=== PATIENT | male | born 1955 | race Caucasian/White ===

== ENCOUNTER 2018-04-29 16:04 | Inpatient (IN) | payer MEDICAID ==
--- NOTE | 2018-04-29 16:47 | C.PDOC ---
History Of Present Illness 63 years old male with Hx of diabetes presents to ED for complaints of intermittent headache associated with numbness of right arm, slurred speech and dizziness that began 2 weeks ago. Patient states he went to PMD around 12:30Pm this afternoon and was sent to ER for evaluation. Denies chest pain, SOB, Hx of smoking or allergies to any medication. Patient states he currently feels like he has "Pressure on Brain." Time Seen by Provider: 04/29/18 16:33 Chief Complaint (Nursing): Headache History Per: Patient, [employer]ic History/Exam Limitations: language barrier (Turkish speaking) Onset/Duration Of Symptoms: Days (14) Current Symptoms Are (Timing): Still Present Preceeding Symptoms: None Associated Symptoms: denies: Photophobia, Blurred Vision Recent travel outside of the [place]: No Past Medical History Reviewed: Historical Data, Nursing Documentation, Vital Signs Vital Signs: Last Vital Signs Temp 98.7 F 04/29/18 16:13 Pulse 78 04/29/18 16:13 Resp 16 04/29/18 16:13 BP 144/96 H 04/29/18 16:13 Pulse Ox 98 04/29/18 18:33 - Medical History PMH: Diabetes Surgical History: No Surg Hx Family History: States: Unknown Family Hx - Social History Hx Tobacco Use: No Hx Alcohol Use: No Hx Substance Use: No Review Of Systems Constitutional: Negative for: Fever, Chills Cardiovascular: Negative for: Chest Pain Respiratory: Negative for: Shortness of Breath Gastrointestinal: Negative for: Nausea, Vomiting, Abdominal Pain, Diarrhea Neurological: Positive for: Numbness, Change in Speech, Headache, Dizziness. Negative for: Weakness Physical Exam - Physical Exam Appears: Non-toxic Skin: Warm, Dry Head: Atraumatic, Normacephalic Eye(s): bilateral: Normal Inspection, PERRL, EOMI Oral Mucosa: Moist Neck: Normal ROM, Supple Chest: Symmetrical, No Tenderness Cardiovascular: Rhythm Regular, No Murmur Respiratory: Normal Breath Sounds, No Decreased Breath Sounds, No Rales, No Rhonchi, No Wheezing Gastrointestinal/Abdominal: Soft, No Tenderness, No Distention, No Guarding, No Rebound Extremity: Normal ROM, No Tenderness, No Pedal Edema, Other (Decreased sensation on right upper extremities but equal sensation on lower extremities. No drift on upper or lower extremity. ) Extremity: Bilateral: Normal Color And Temperature, Normal ROM Neurological/Psych: Oriented x3, Normal Speech, Other (No focal deficits ) Gait: Steady ED Course And Treatment - Laboratory Results Result Diagrams: 04/29/18 17:08 04/29/18 17:08 O2 Sat by Pulse Oximetry: 98 (RA) Pulse Ox Interpretation: Normal - CT Scan/US Head CT Other Rad Studies (CT/US): Read By Radiologist, Radiology Report Reviewed CT/US Interpretation: PROCEDURE: CT HEAD WITHOUT CONTRAST. HISTORY: r/o stroke. COMPARISON: None available. TECHNIQUE: Axial computed tomography images were obtained through the head/brain without intravenous contrast. Radiation dose: Total exam DLP = 839.84 mGy-cm. This CT exam was performed using one or more of the following dose reduction techniques: Automated exposure control, adjustment of the mA and/or kV according to patient size, and/ or use of iterative reconstruction technique. FINDINGS: HEMORRHAGE: No intracranial hemorrhage. BRAIN: The waters-white matter differentiation is well preserved. There is no mass effect or definitive edema pattern appreciate including the cortex. There is minimal expansion of the ventriculosulcal and cisternal spaces however in a pattern most compatible with diffuse cerebral atrophy. No suspicious extra-axial fluid collection is identified in the midline brain anatomy appears grossly nonfocal as imaged. No atrophy or chronic microvascular ischemic changes. VENTRICLES: Unremarkable. No hydrocephalus. CALVARIUM: Unremarkable. PARANASAL SINUSES: Unremarkable as visualized. No significant inflammatory changes. MASTOID AIR CELLS: Unremarkable as visualized. No inflammatory changes. OTHER FINDINGS: None. IMPRESSION: Minimal diffuse cerebral atrophy however no CT acute findings are appreciable throughout the brain as discussed above. Follow-up CT or MRI are available as clinically warranted. Medical Decision Making Medical Decision Making: Ordered CXR, blood work, and Head CT. 5:38PM: Spoke with Pete Wright the neurologist, she said to order a consult and order CT Head, neck and MRI. 5:46: - Spoke with Magdalena Salcedo for admission. Disposition - Disposition Disposition: HOSPITALIZED Disposition Time: 17:47 Condition: GOOD - Clinical Impression Clinical Impression: Stroke - Scribe Statement The provider has reviewed the documentation as recorded by the Scribe Breezy Choudhury All medical record entries made by the Scribe were at my direction and personally dictated by me. I have reviewed the chart and agree that the record accurately reflects my personal performance of the history, physical exam, medical decision making, and the department course for this patient. I have also personally directed, reviewed, and agree with the discharge instructions and disposition. Decision To Admit - Pt Status Changed To: Hospital Disposition Of: Inpatient - Admit Certification Admit to Inpatient:: After my assessment, the patient will require hospitalization for at least two midnights. This is because of the severity of symptoms shown, intensity of services needed, and/or the medical risk in this patient being treated as an outpatient. - InPatient: Physician Admission Certification: I certify that this patient requires 2 or more midnights of care for the following reason:: 61 years old male with Hx of HTN and diabetes presents to ED for complaints of right arm numbness and slurred speech and has had dizziness for past 15 days. Symptoms progressively worsen and was referred here by PCP today. - . Bed Request Type: Regular Admitting Physician: Orlin Mattson Patient Diagnosis: Stroke
[2018-04-29 17:14] LABS: BASO # 0.1 K/uL (0.0-0.2); BASO % 0.9 % (0.0-2.0); EOS # 0.2 K/uL (0.0-0.7); EOS % 2.4 % (0.0-4.0); HEMOGLOBIN 13.8 g/dL (12.0-18.0); LYMPH # 3.2 K/uL (1.0-4.3); LYMPH % 48.7 % (20.0-40.0); MEAN CELL VOLUME 88.5 fL (80.0-94.0); MEAN CORPUSCULAR HEMOGLOBIN 31.6 pg (27.0-31.0); MEAN CORPUSCULAR HGB CONC 35.6 g/dL (33.0-37.0); MEAN PLATELET VOLUME 7.6 fL (7.2-11.7); MONO # 0.4 K/uL (0.0-0.8); NEUT # 2.8 K/uL (1.8-7.0); NRBC % 0.1 % (0.0-2.0); RBC 4.37 Mil/uL (4.40-5.90); RED CELL DISTRIBUTION WIDTH 13.4 % (11.5-14.5); WHITE BLOOD COUNT 6.6 K/uL (4.8-10.8)
[2018-04-29 17:20] LABS: INR 1.1; PROTHROMBIN TIME 11.8 SECONDS (9.7-12.2)
[2018-04-29 17:40] LABS: ALB/GLOB RATIO 1.3 (1.0-2.1); ALBUMIN 4.3 g/dL (3.5-5.0); ALT/SGPT 42 U/L (21-72); AST/SGOT 31 U/L (17-59); BLOOD UREA NITROGEN 18 mg/dL (9-20); CALCIUM 9.4 mg/dl (8.6-10.4); GFR AFRICAN-AMERICAN 57; GFR NON-AFRICAN AMERICAN 47
[2018-04-29 17:50] LABS: CK-MB 1.08 ng/mL (0.0-3.38)
--- NOTE | 2018-04-29 18:11 | CT ---
PROCEDURE: CT HEAD WITHOUT CONTRAST. HISTORY: r/o stroke COMPARISON: None available. TECHNIQUE: Axial computed tomography images were obtained through the head/brain without intravenous contrast. Radiation dose: Total exam DLP = 839.84 mGy-cm. This CT exam was performed using one or more of the following dose reduction techniques: Automated exposure control, adjustment of the mA and/or kV according to patient size, and/or use of iterative reconstruction technique. FINDINGS: HEMORRHAGE: No intracranial hemorrhage. BRAIN: The waters-white matter differentiation is well preserved. There is no mass effect or definitive edema pattern appreciate including the cortex. There is minimal expansion of the ventriculosulcal and cisternal spaces however in a pattern most compatible with diffuse cerebral atrophy. No suspicious extra-axial fluid collection is identified in the midline brain anatomy appears grossly nonfocal as imaged. No atrophy or chronic microvascular ischemic changes. VENTRICLES: Unremarkable. No hydrocephalus. CALVARIUM: Unremarkable. PARANASAL SINUSES: Unremarkable as visualized. No significant inflammatory changes. MASTOID AIR CELLS: Unremarkable as visualized. No inflammatory changes. OTHER FINDINGS: None. IMPRESSION: Minimal diffuse cerebral atrophy however no CT acute findings are appreciable throughout the brain as discussed above. Follow-up CT or MRI are available as clinically warranted.
[2018-04-29] MEDS ORDERED: Iodixanol 320 mg/ml 150 ml Bottle IV ONE (18:12)
--- NOTE | 2018-04-29 18:35 | CP.PCM.HP ---
<Gale Reynoso - Last Filed: 04/29/18 20:07> History of Present Illness - History of Present Illness History of Present Illness: Healthcare proxy: - Karla Brooks #[phone] CC: "Headache and change in speech" HPI: 63 year old male with past medical history of HTN, DM type II, Vertigo; Lymphoma presents to the ER for headache, slurred speech and right arm numbness. Patient states the symptoms started around noon today when he was at his PMD's office. He states the right hand numbness started first and went up his arm and then he had difficulty speaking. He states these symptoms lasted for about 1-2 hours. His PMD wanted to call the ambulance but the patient came to the ER instead with his . Patient states this happened about a month ago with the same symptoms while he was in [place]. He states at that time he was seen by a physician in [place] who stated it was related to cervical disk problem. Patient states the last few days he has been having painful headaches which are located behind his eyes. Patient denies change in vision, blurry vision, weakness, chest pain, shortness of breath, nausea, vomiting, diarrhea or constipation. PMD: Dr. Wing Mahoney Oncologist: Dr. 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 absent: Chills, Fever - EENT Eyes: absent: Blurred Vision, Change in Vision - Cardiovascular Cardiovascular: absent: Chest Pain, Dyspnea, Palpitations, Pedal Edema - Respiratory Respiratory: absent: Dyspnea - Gastrointestinal Gastrointestinal: absent: Abdominal Pain, Constipation, Nausea, Vomiting - Genitourinary Genitourinary: absent: Dysuria, Hematuria - Neurological Neurological: Abnormal Speech (slurred speech ), Dizziness, Numbness (right arm numbness ), Headaches Past Patient History - Past Social History Smoking Status: Never Smoked - PSYCHIATRIC Hx Substance Use: No Meds Allergies/Adverse Reactions: Allergies Allergy/AdvReac Type Severity Reaction Status Date / Time Latex, Natural Rubber Allergy RASH Verified 04/29/18 20:29 Physical Exam - Constitutional Appears: Non-toxic, No Acute Distress - Head Exam Head Exam: ATRAUMATIC, NORMAL INSPECTION, NORMOCEPHALIC - Eye Exam Eye Exam: EOMI, Normal appearance, PERRL. absent: Nystagmus, Scleral icterus Pupil Exam: NORMAL ACCOMODATION - ENT Exam ENT Exam: Mucous Membranes Dry - Respiratory Exam Respiratory Exam: Clear to Auscultation Bilateral, NORMAL BREATHING PATTERN. absent: Rales, Rhonchi, Wheezes, Stridor - Cardiovascular Exam Cardiovascular Exam: REGULAR RHYTHM, +S1, +S2. absent: JVD - GI/Abdominal Exam GI & Abdominal Exam: Normal Bowel Sounds, Soft. absent: Tenderness - Extremities Exam Extremities exam: Positive for: normal capillary refill, normal inspection, pedal pulses present. Negative for: joint swelling, pedal edema, tenderness - Neurological Exam Neurological exam: Alert, CN II-XII Intact, Oriented x3 - Expanded Neurological Exam Expanded Patient oriented to: person, place, time Speech: Fluid Speech Cranial nerves: EOM's Intact: Normal Sensory exam: Lower Extremity Light Touch: Normal, Upper Extremity Light Touch: Normal Neuro motor strength exam: Left Upper Extremity: 5, Right Upper Extremity: 5, Left Lower Extremity: 5, Right Lower Extremity: 5 Coma Scale Eye Opening: SPONTANEOUS Coma Scale Motor Response: OBEYS COMMANDS - Psychiatric Exam Psychiatric exam: Normal Affect, Normal Mood - Skin Skin Exam: Normal Color Results - Vital Signs Recent Vital Signs: Last Vital Signs Temp 98.7 F 04/29/18 16:13 Pulse 78 04/29/18 16:13 Resp 16 04/29/18 16:13 BP 144/96 H 04/29/18 16:13 Pulse Ox 98 04/29/18 18:33 - Labs Result Diagrams: 04/29/18 17:08 04/29/18 17:08 Labs: Laboratory Results - last 24 hr 04/29/18 04/29/18 04/29/18 17:08 17:08 17:08 WBC 6.6 RBC 4.37 L Hgb 13.8 Hct 38.6 MCV 88.5 MCH 31.6 H MCHC 35.6 RDW 13.4 Plt Count 264 MPV 7.6 Neut % (Auto) 42.0 L Lymph % (Auto) 48.7 H [place] % (Auto) 6.0 Eos % (Auto) 2.4 Baso % (Auto) 0.9 Neut # (Auto) 2.8 Lymph # (Auto) 3.2 [place] # (Auto) 0.4 Eos # (Auto) 0.2 Baso # (Auto) 0.1 PT 11.8 INR 1.1 APTT 37 H Sodium 141 Potassium 4.6 Chloride 102 Carbon Dioxide 27 Anion Gap 18 BUN 18 Creatinine 1.5 Est GFR ( Amer) 57 Est GFR (Non-Af Amer) 47 Random Glucose 102 Calcium 9.4 Total Bilirubin 0.5 AST 31 ALT 42 Alkaline Phosphatase 49 Total Creatine Kinase 137 CK-MB (Mass) 1.08 Troponin I < 0.0120 Total Protein 7.5 Albumin 4.3 Globulin 3.2 Albumin/Globulin Ratio 1.3 Assessment & Plan - Assessment and Plan (Free Text) Assessment: Headache/Numbness/Slurred Speech - secondary to possible TIA - Numbness and slurred speech resolved on admission - NIH 0 - Admitted to Tele - Neuro Consult: Dr. Lara --> help appreciated - Dr. Lara was made aware of patient's admission - Neuro Checks q2h - Nursing bedside swallow eval - Head CT: Minimal diffuse cerebral atrophy however no CT acute findings are appreciable throughout the brain as discussed above. Follow-up CT or MRI are available as clinically warranted. 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 Hardik Lei - patient states his last visit was 2 years ago History of Vertigo - Home medications - Meclizine - hold Prophylaxis - SCDs - DVT score of 4 - Heparin q8 - GI prophylaxis not indicated - PT/OT Case discussed with Dr. Twila Palma PGY-1 <Orlin Mattson - Last Filed: 04/30/18 16:18> Results - Vital Signs Recent Vital Signs: Last Vital Signs Temp 97.6 F 04/30/18 11:44 Pulse 54 L 04/30/18 11:44 Resp 18 04/30/18 11:44 BP 112/71 04/30/18 11:44 Pulse Ox 96 04/30/18 11:44 - Labs Result Diagrams: 04/30/18 09:56 04/30/18 06:48 Labs: Laboratory Results - last 24 hr 04/29/18 04/29/18 04/29/18 17:08 17:08 17:08 WBC 6.6 RBC 4.37 L Hgb 13.8 Hct 38.6 MCV 88.5 MCH 31.6 H MCHC 35.6 RDW 13.4 Plt Count 264 MPV 7.6 Neut % (Auto) 42.0 L Lymph % (Auto) 48.7 H [place] % (Auto) 6.0 Eos % (Auto) 2.4 Baso % (Auto) 0.9 Neut # (Auto) 2.8 Lymph # (Auto) 3.2 [place] # (Auto) 0.4 Eos # (Auto) 0.2 Baso # (Auto) 0.1 PT 11.8 INR 1.1 APTT 37 H Sodium 141 Potassium 4.6 Chloride 102 Carbon Dioxide 27 Anion Gap 18 BUN 18 Creatinine 1.5 Est GFR ( Amer) 57 Est GFR (Non-Af Amer) 47 POC Glucose (mg/dL) Random Glucose 102 Hemoglobin A1c Calcium 9.4 Total Bilirubin 0.5 AST 31 ALT 42 Alkaline Phosphatase 49 Total Creatine Kinase 137 CK-MB (Mass) 1.08 Troponin I < 0.0120 Total Protein 7.5 Albumin 4.3 Globulin 3.2 Albumin/Globulin Ratio 1.3 Triglycerides Cholesterol LDL Cholesterol Direct HDL Cholesterol Vitamin B12 Folate Free T4 TSH 3rd Generation 04/29/18 04/29/18 04/30/18 18:54 21:17 06:00 WBC RBC Hgb Hct MCV MCH MCHC RDW Plt Count MPV Neut % (Auto) Lymph % (Auto) [place] % (Auto) Eos % (Auto) Baso % (Auto) Neut # (Auto) Lymph # (Auto) [place] # (Auto) Eos # (Auto) Baso # (Auto) PT INR APTT Sodium Potassium Chloride Carbon Dioxide Anion Gap BUN Creatinine Est GFR ( Amer) Est GFR (Non-Af Amer) POC Glucose (mg/dL) 94 121 H 103 Random Glucose Hemoglobin A1c Calcium Total Bilirubin AST ALT Alkaline Phosphatase Total Creatine Kinase CK-MB (Mass) Troponin I Total Protein Albumin Globulin Albumin/Globulin Ratio Triglycerides Cholesterol LDL Cholesterol Direct HDL Cholesterol Vitamin B12 Folate Free T4 TSH 3rd Generation 04/30/18 04/30/18 04/30/18 06:48 06:48 09:56 WBC 6.5 RBC 4.49 Hgb 13.8 Hct 40.2 MCV 89.6 MCH 30.8 MCHC 34.3 RDW 13.3 Plt Count 256 MPV 8.5 Neut % (Auto) 33.3 L Lymph % (Auto) 53.9 H [place] % (Auto) 8.5 Eos % (Auto) 3.4 Baso % (Auto) 0.9 Neut # (Auto) 2.2 Lymph # (Auto) 3.5 [place] # (Auto) 0.6 Eos # (Auto) 0.2 Baso # (Auto) 0.1 PT INR APTT Sodium 140 Potassium 4.8 Chloride 104 Carbon Dioxide 25 Anion Gap 15 BUN 18 Creatinine 1.2 Est GFR ( Amer) > 60 Est GFR (Non-Af Amer) > 60 POC Glucose (mg/dL) Random Glucose 115 H Hemoglobin A1c 6.5 Calcium 9.4 Total Bilirubin 0.6 AST 24 ALT 37 Alkaline Phosphatase 46 Total Creatine Kinase CK-MB (Mass) Troponin I Total Protein 7.0 Albumin 4.0 Globulin 3.0 Albumin/Globulin Ratio 1.4 Triglycerides 133 Cholesterol 199 LDL Cholesterol Direct 137 H HDL Cholesterol 38 Vitamin B12 371 Folate 8.7 Free T4 TSH 3rd Generation 4.87 H 04/30/18 04/30/18 11:07 11:32 WBC RBC Hgb Hct MCV MCH MCHC RDW Plt Count MPV Neut % (Auto) Lymph % (Auto) [place] % (Auto) Eos % (Auto) Baso % (Auto) Neut # (Auto) Lymph # (Auto) [place] # (Auto) Eos # (Auto) Baso # (Auto) PT INR APTT Sodium Potassium Chloride Carbon Dioxide Anion Gap BUN Creatinine Est GFR ( Amer) Est GFR (Non-Af Amer) POC Glucose (mg/dL) 118 H Random Glucose Hemoglobin A1c Calcium Total Bilirubin AST ALT Alkaline Phosphatase Total Creatine Kinase CK-MB (Mass) Troponin I Total Protein Albumin Globulin Albumin/Globulin Ratio Triglycerides Cholesterol LDL Cholesterol Direct HDL Cholesterol Vitamin B12 Folate Free T4 0.87 TSH 3rd Generation Attending/Attestation - Attestation I have personally seen and examined this patient.: Yes I have fully participated in the care of the patient.: Yes I have reviewed all pertinent clinical information: Yes Notes (Text): Seen and examined by me.d/w Resident
--- NOTE | 2018-04-29 19:32 | RAD ---
PROCEDURE: CHEST RADIOGRAPH, 1 VIEW HISTORY: SOB COMPARISON: None available. FINDINGS: LUNGS: No acute alveolar infiltrate identified bilaterally. Reticular markings are questioned increased bilaterally. PLEURA: No pneumothorax or pleural fluid seen. CARDIOVASCULAR: Cardiac size appears normal. There is borderline pulmonary vascular congestion. Clinically correlate further. OSSEOUS STRUCTURES: No significant abnormalities. VISUALIZED UPPER ABDOMEN: Normal. OTHER FINDINGS: None. IMPRESSION: Questionable pulmonary vascular congestion. Clinically correlate further. No acute infiltrate bilaterally.
[2018-04-29] MEDS ORDERED: Glucagon Recombinant 1 mg Inj IM PRN (20:16)
[2018-04-29] MEDS ORDERED: Dextrose 50% SYRINGE Inj (50 ml) IV PRN (20:16)
[2018-04-29] MEDS: (Novolin R) Insulin Human Regular 100 units/ml vial SC SCH (21:30)
--- NOTE | 2018-04-30 07:14 | CP.PCM.PN ---
Subjective - Date & Time of Evaluation Date of Evaluation: 04/30/18 Time of Evaluation: 07:00 - Subjective Subjective: Medicine Progress Note: Patient was seen and examined at bedside in the AM. Patient states he is feeling a lot better. Patient denies headache, blurry vision, change in vision, numbness, tingling, chest pain, shortness of breath, palpitation, nausea, vomiting, diarrhea or constipation. Objective - Vital Signs/Intake and Output Vital Signs (last 24 hours): Temp Pulse Resp BP Pulse Ox 98.2 F 64 20 118/78 96 04/30/18 04:15 04/30/18 04:15 04/30/18 04:15 04/30/18 04:15 04/30/18 04:15 Intake and Output: 04/30/18 04/30/18 06:59 18:59 Intake Total 410 Balance 410 - Medications Medications: Current Medications Aspirin (Aspirin Chewable) 81 mg PO DAILY [facility] Dextrose (Glutose 15) 0 gm PO ONCE PRN; Protocol PRN Reason: Hypoglycemia Protocol Dextrose (Dextrose 50% Inj) 0 ml IV STAT PRN; Protocol PRN Reason: Hypoglycemia Protocol Glucagon (Glucagen Diagnostic Kit) 0 mg IM STAT PRN; Protocol PRN Reason: Hypoglycemia Protocol Heparin Sodium (Porcine) (Heparin) 5,000 units SC Q8 [facility] Last Admin: 04/30/18 05:13 Dose: 5,000 units Dextrose (Dextrose 5% In Water 1000 Ml) 1,000 mls @ 0 mls/hr IV .Q0M PRN; Protocol; Per Protocol PRN Reason: Hypoglycemia Protocol Insulin Human Regular (Novolin R) 0 unit SC ACHS [facility] PRN Reason: Protocol Last Admin: 04/29/18 21:30 Dose: Not Given Rosuvastatin Calcium (Crestor) 2.5 mg PO HS BRUCE - Labs Labs: 04/29/18 17:08 04/29/18 17:08 PT 11.8 SECONDS (9.7-12.2) 04/29/18 17:08 INR 1.1 04/29/18 17:08 APTT 37 SECONDS (21-34) H 04/29/18 17:08 - Constitutional Appears: No Acute Distress - Head Exam Head Exam: ATRAUMATIC, NORMAL INSPECTION - Eye Exam Eye Exam: EOMI, Normal appearance, PERRL Pupil Exam: NORMAL ACCOMODATION - ENT Exam ENT Exam: Mucous Membranes Moist - Respiratory Exam Respiratory Exam: Clear to Ausculation Bilateral, NORMAL BREATHING PATTERN - Cardiovascular Exam Cardiovascular Exam: REGULAR RHYTHM, +S1, +S2 - GI/Abdominal Exam GI & Abdominal Exam: Soft, Normal Bowel Sounds. absent: Tenderness - Extremities Exam Extremities Exam: Normal Capillary Refill, Normal Inspection. absent: Pedal Edema, Tenderness - Neurological Exam Neurological Exam: Alert, Awake, CN II-XII Intact, Oriented x3 Neuro motor strength exam: Left Upper Extremity: 5, Right Upper Extremity: 5, Left Lower Extremity: 5, Right Lower Extremity: 5 - Psychiatric Exam Psychiatric exam: Normal Affect, Normal Mood - Skin Skin Exam: Normal Color Assessment and Plan - Assessment and Plan (Free Text) Assessment: Transient Ischemic Attack Headache/Numbness/Slurred Speech - resolved - secondary to possible TIA - Numbness and slurred speech resolved on admission - NIH 0 - Admitted to Tele - Neuro Consult: Dr. Lara --> help appreciated - Dr. Lara was made aware of patient's admission and imaging findings 04/30/18 - Neuro Checks q4h - Nursing bedside swallow eval - Images: * Head CT: Minimal diffuse cerebral atrophy however no CT acute findings are appreciable throughout the brain as discussed above. Follow-up CT or MRI are available as clinically warranted. * Brain MRI with and w/o contrast: No acute intracranial hemorrhage or infarction. Mild chronic white matter is ischemic changes as described. No enhancing lesions seen. Mild moderate generalized volume loss. * Head/Neck CTA: Minor partially calcified atherosclerotic plaque left carotid bifurcation and right cavernous carotid segments. No evidence of occlusion of the extracranial or intracranial anterior/ posterior circulations as described. 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 Hardik Lei - patient states his last visit was 2 years ago History of Vertigo - Home medications - Meclizine - hold Prophylaxis - SCDs - DVT score of 4 - Heparin q8 - GI prophylaxis not indicated - PT/OT Case discussed with Dr. Twila Palma PGY-1
[2018-04-30 07:24] LABS: ALB/GLOB RATIO 1.4 (1.0-2.1); ALT/SGPT 37 U/L (21-72); AST/SGOT 24 U/L (17-59); BLOOD UREA NITROGEN 18 mg/dL (9-20); CALCIUM 9.4 mg/dl (8.6-10.4); GFR AFRICAN-AMERICAN > 60; GFR NON-AFRICAN AMERICAN > 60; HDL CHOLESTEROL 38 mg/dL (30-70)
[2018-04-30 07:32] LABS: LDL CHOLESTEROL 137 mg/dL (0-129)
[2018-04-30] MEDS: (Novolin R) Insulin Human Regular 100 units/ml vial SC SCH ×4 (07:38→21:39)
[2018-04-30 09:44] LABS: FOLATE 8.7 ng/mL
[2018-04-30 10:08] LABS: BASO # 0.1 K/uL (0.0-0.2); BASO % 0.9 % (0.0-2.0); EOS # 0.2 K/uL (0.0-0.7); EOS % 3.4 % (0.0-4.0); HEMOGLOBIN 13.8 g/dL (12.0-18.0); LYMPH # 3.5 K/uL (1.0-4.3); LYMPH % 53.9 % (20.0-40.0); MEAN CELL VOLUME 89.6 fL (80.0-94.0); MEAN CORPUSCULAR HEMOGLOBIN 30.8 pg (27.0-31.0); MEAN CORPUSCULAR HGB CONC 34.3 g/dL (33.0-37.0); MEAN PLATELET VOLUME 8.5 fL (7.2-11.7); MONO # 0.6 K/uL (0.0-0.8); MONO % 8.5 % (0.0-10.0); NEUT # 2.2 K/uL (1.8-7.0); NEUT % 33.3 % (50.0-75.0); NRBC % 0.3 % (0.0-2.0); RBC 4.49 Mil/uL (4.40-5.90); RED CELL DISTRIBUTION WIDTH 13.3 % (11.5-14.5); WHITE BLOOD COUNT 6.5 K/uL (4.8-10.8)
--- NOTE | 2018-04-30 10:54 | MRI ---
PROCEDURE: MRI BRAIN WITH AND WITHOUT CONTRAST HISTORY: Numbness of right arm,slurred speech,h/o lymphoma COMPARISON: Comparison made with concurrent CT and CTA brain dated 04/29/2018 TECHNIQUE: Multiplanar, multisequence MR images of the brain were obtained with and without intravenous contrast enhancement. FINDINGS: HEMORRHAGE: No acute parenchymal, subarachnoid or extra-axial hemorrhage. No evidence of hemosiderin deposition identified on gradient echo weighted sequences DWI: No evidence of an acute or early subacute infarction seen on diffusion imaging. . BRAIN PARENCHYMA: Mild diffuse/ confluent chronic periventricular white matter ischemic changes seen in seen though most conspicuous in the periatrial/very occipital horn white matter. In addition, there are multiple more discrete chronic appearing small infarct changes scattered about the deep and subcortical regions of both cerebral hemispheres more more numerous and pronounced in the parietal lobes. None of these changes exhibit restricted diffusion. Scattered chronic appearing . Findings consistent with partially empty sella. Mild moderate generalized volume loss. ENHANCEMENT: No evidence of abnormal parenchymal or extra-axial enhancing masses or collections. No evidence of unusual meningeal enhancement. VENTRICLES: Unremarkable. No hydrocephalus. CRANIUM: Unremarkable. ORBITS: Grossly unremarkable. PARANASAL SINUSES/MASTOIDS: Clear VASCULAR SYSTEM: Visualized major vascular flow voids at skull base patent. OTHER FINDINGS: None . IMPRESSION: No acute intracranial hemorrhage or infarction. Mild chronic white matter is ischemic changes as described. No enhancing lesions seen. Mild moderate generalized volume loss.
--- NOTE | 2018-04-30 11:08 | CT ---
PROCEDURE: CT Angiography of the neck and brain dated 04/29/2018 HISTORY: Slurred speech, headache and dizziness. COMPARISON: Correlation made with CT scan of the brain and MRI of the brain both dated 04/29/2018. TECHNIQUE: Contiguous helical/transaxial images of the neck were obtained from the level of the skull-base to the superior mediastinum in the arteriographic phase of enhancement. Coronal and sagittal reformats or also generated. IV contrast dose: 100 cc Visipaque 320 Radiation Dose - DLP: 651.85 mGy-cm This CT exam was performed using one or more of the following dose reduction techniques: Automated exposure control, adjustment of the mA and/or kV according to patient size, and/or use of iterative reconstruction technique. . FINDINGS: The visualized aortic arch is widely patent with nor significant atherosclerotic plaque. No significant plaque or stenosis at the origins of the great vessels. The visualized common carotid arteries, carotid bifurcations and internal carotid arteries are also widely patent very tiny. Ten very tiny calcified plaque seen along the posteromedial aspect left carotid bifurcation without significant stenosis. The at internal carotid arteries including the petrous cavernous and supraclinoid segments widely patent. Mild calcified plaque seen along the right cavernous carotid segment. The vertebral arteries are patent throughout right-sided which is only minimally more dominant than the left. Basilar artery is patent. The visualized major branches of the [place] are patent. . The distal branches of the anterior middle and posterior cerebral arteries are patent and symmetric. No evidence of large aneurysm nor vascular malformation. IMPRESSION: Minor partially calcified atherosclerotic plaque left carotid bifurcation and right cavernous carotid segments. No evidence of occlusion of the extracranial or intracranial anterior/ posterior circulations as described. .
[2018-04-30] MEDS: Sodium Chloride 0.9% 1,000 ML IV SCH ×2 (13:11→22:20)
--- NOTE | 2018-04-30 15:54 | CP.PCM.CON ---
History of Present Illness - History of Present Illness History of Present Illness: 63 yr old male, right handed who is originally from [place], presented with second spell of dysarthria and right arm weakness who came in to ER yesterday and symptoms were resolved. had MRI Brain that is normal, and is now pending ECHO. His CTA of the head and neck shows mild atherosclerotic plaque in the left carotid bifurcation, and case was discussed with Dr. Carey. We will just start antiplatelets, and monitor on an outpatient basis. He has not had a resurgence of symptoms, and is well this morning. past medical history of HTN, DM type II, Vertigo; Lymphoma presents to the ER for headache, slurred speech and right arm numbness. Patient states the symptoms started around noon today when he was at his PMD's office. He states the right hand numbness started first and went up his arm and then he had difficulty speaking. He states these symptoms lasted for about 1-2 hours. His PMD wanted to call the ambulance but the patient came to the ER instead with his . Patient states this happened about a month ago with the same symptoms while he was in [place]. He states at that time he was seen by a physician in [place] who stated it was related to cervical disk problem. Patient states the last few days he has been having painful headaches which are located behind his eyes. Patient denies change in vision, blurry vision, weakness, chest pain, shortness of breath, nausea, vomiting, diarrhea or constipation. PMD: Dr. Wing Mahoney Oncologist: Dr. 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 Cn 2-12 normal. EOMI. Motor: strength: 5/5 ul and ll bl. Sensory: intact ft, pin, position sense. Gait: normal. +2 dtr ul and ll bl. Toes downgoing. NO clonus. Past Patient History - Past Medical History & Family History Past Medical History?: Yes - Past Social History Smoking Status: Never Smoked - CARDIAC Hx Cardiac Disorders: No - PULMONARY Hx Respiratory Disorders: No - NEUROLOGICAL Hx Neurological Disorder: No - HEENT Hx HEENT Problems: No - RENAL Hx Chronic Kidney Disease: No - ENDOCRINE/METABOLIC Hx Diabetes Mellitus Type 2: Yes - HEMATOLOGICAL/ONCOLOGICAL Hx Blood Disorders: No - INTEGUMENTARY Hx Dermatological Problems: No - MUSCULOSKELETAL/RHEUMATOLOGICAL Hx Musculoskeletal Disorders: No Hx Falls: No - GASTROINTESTINAL Hx Gastrointestinal Disorders: No - GENITOURINARY/GYNECOLOGICAL Hx Genitourinary Disorders: No - PSYCHIATRIC Hx Psychophysiologic Disorder: No Hx Substance Use: No - SURGICAL HISTORY Hx Surgeries: No Meds Allergies/Adverse Reactions: Allergies Allergy/AdvReac Type Severity Reaction Status Date / Time Latex, Natural Rubber Allergy RASH Verified 04/29/18 20:29 - Medications Medications: Current Medications Aspirin (Aspirin Chewable) 81 mg PO DAILY [facility] Last Admin: 04/30/18 09:09 Dose: 81 mg Clopidogrel Bisulfate (Plavix) 75 mg PO DAILY [facility] Last Admin: 04/30/18 13:11 Dose: 75 mg Dextrose (Glutose 15) 0 gm PO ONCE PRN; Protocol PRN Reason: Hypoglycemia Protocol Dextrose (Dextrose 50% Inj) 0 ml IV STAT PRN; Protocol PRN Reason: Hypoglycemia Protocol Glucagon (Glucagen Diagnostic Kit) 0 mg IM STAT PRN; Protocol PRN Reason: Hypoglycemia Protocol Heparin Sodium (Porcine) (Heparin) 5,000 units SC Q8 [facility] Last Admin: 04/30/18 13:31 Dose: 5,000 units Dextrose (Dextrose 5% In Water 1000 Ml) 1,000 mls @ 0 mls/hr IV .Q0M PRN; Protocol; Per Protocol PRN Reason: Hypoglycemia Protocol Sodium Chloride (Sodium Chloride 0.9%) 1,000 mls @ 100 mls/hr IV .Q10H [facility] Last Admin: 04/30/18 13:11 Dose: 100 mls/hr Insulin Human Regular (Novolin R) 0 unit SC ACHS [facility] PRN Reason: Protocol Last Admin: 04/30/18 11:51 Dose: Not Given Rosuvastatin Calcium (Crestor) 5 mg PO HS [facility] Results - Vital Signs Recent Vital Signs: Last Vital Signs Temp 97.6 F 04/30/18 11:44 Pulse 54 L 04/30/18 11:44 Resp 18 04/30/18 11:44 BP 112/71 04/30/18 11:44 Pulse Ox 96 04/30/18 11:44 - Labs Result Diagrams: 04/30/18 09:56 04/30/18 06:48 Labs: Laboratory Results - last 24 hr 04/29/18 04/29/18 04/29/18 17:08 17:08 17:08 WBC 6.6 RBC 4.37 L Hgb 13.8 Hct 38.6 MCV 88.5 MCH 31.6 H MCHC 35.6 RDW 13.4 Plt Count 264 MPV 7.6 Neut % (Auto) 42.0 L Lymph % (Auto) 48.7 H [place] % (Auto) 6.0 Eos % (Auto) 2.4 Baso % (Auto) 0.9 Neut # (Auto) 2.8 Lymph # (Auto) 3.2 [place] # (Auto) 0.4 Eos # (Auto) 0.2 Baso # (Auto) 0.1 PT 11.8 INR 1.1 APTT 37 H Sodium 141 Potassium 4.6 Chloride 102 Carbon Dioxide 27 Anion Gap 18 BUN 18 Creatinine 1.5 Est GFR ( Amer) 57 Est GFR (Non-Af Amer) 47 POC Glucose (mg/dL) Random Glucose 102 Hemoglobin A1c Calcium 9.4 Total Bilirubin 0.5 AST 31 ALT 42 Alkaline Phosphatase 49 Total Creatine Kinase 137 CK-MB (Mass) 1.08 Troponin I < 0.0120 Total Protein 7.5 Albumin 4.3 Globulin 3.2 Albumin/Globulin Ratio 1.3 Triglycerides Cholesterol LDL Cholesterol Direct HDL Cholesterol Vitamin B12 Folate Free T4 TSH 3rd Generation 04/29/18 04/29/18 04/30/18 18:54 21:17 06:00 WBC RBC Hgb Hct MCV MCH MCHC RDW Plt Count MPV Neut % (Auto) Lymph % (Auto) [place] % (Auto) Eos % (Auto) Baso % (Auto) Neut # (Auto) Lymph # (Auto) [place] # (Auto) Eos # (Auto) Baso # (Auto) PT INR APTT Sodium Potassium Chloride Carbon Dioxide Anion Gap BUN Creatinine Est GFR ( Amer) Est GFR (Non-Af Amer) POC Glucose (mg/dL) 94 121 H 103 Random Glucose Hemoglobin A1c Calcium Total Bilirubin AST ALT Alkaline Phosphatase Total Creatine Kinase CK-MB (Mass) Troponin I Total Protein Albumin Globulin Albumin/Globulin Ratio Triglycerides Cholesterol LDL Cholesterol Direct HDL Cholesterol Vitamin B12 Folate Free T4 TSH 3rd Generation 04/30/18 04/30/18 04/30/18 06:48 06:48 09:56 WBC 6.5 RBC 4.49 Hgb 13.8 Hct 40.2 MCV 89.6 MCH 30.8 MCHC 34.3 RDW 13.3 Plt Count 256 MPV 8.5 Neut % (Auto) 33.3 L Lymph % (Auto) 53.9 H [place] % (Auto) 8.5 Eos % (Auto) 3.4 Baso % (Auto) 0.9 Neut # (Auto) 2.2 Lymph # (Auto) 3.5 [place] # (Auto) 0.6 Eos # (Auto) 0.2 Baso # (Auto) 0.1 PT INR APTT Sodium 140 Potassium 4.8 Chloride 104 Carbon Dioxide 25 Anion Gap 15 BUN 18 Creatinine 1.2 Est GFR ( Amer) > 60 Est GFR (Non-Af Amer) > 60 POC Glucose (mg/dL) Random Glucose 115 H Hemoglobin A1c 6.5 Calcium 9.4 Total Bilirubin 0.6 AST 24 ALT 37 Alkaline Phosphatase 46 Total Creatine Kinase CK-MB (Mass) Troponin I Total Protein 7.0 Albumin 4.0 Globulin 3.0 Albumin/Globulin Ratio 1.4 Triglycerides 133 Cholesterol 199 LDL Cholesterol Direct 137 H HDL Cholesterol 38 Vitamin B12 371 Folate 8.7 Free T4 TSH 3rd Generation 4.87 H 04/30/18 04/30/18 11:07 11:32 WBC RBC Hgb Hct MCV MCH MCHC RDW Plt Count MPV Neut % (Auto) Lymph % (Auto) [place] % (Auto) Eos % (Auto) Baso % (Auto) Neut # (Auto) Lymph # (Auto) [place] # (Auto) Eos # (Auto) Baso # (Auto) PT INR APTT Sodium Potassium Chloride Carbon Dioxide Anion Gap BUN Creatinine Est GFR ( Amer) Est GFR (Non-Af Amer) POC Glucose (mg/dL) 118 H Random Glucose Hemoglobin A1c Calcium Total Bilirubin AST ALT Alkaline Phosphatase Total Creatine Kinase CK-MB (Mass) Troponin I Total Protein Albumin Globulin Albumin/Globulin Ratio Triglycerides Cholesterol LDL Cholesterol Direct HDL Cholesterol Vitamin B12 Folate Free T4 0.87 TSH 3rd Generation
--- NOTE | 2018-04-30 16:18 | CARD ---
APPROVED REPORT EXAM: Two-dimensional and M-mode echocardiogram with Doppler and color Doppler. Other Information Quality : [employer] : INDICATION CVA/TIA Stroke 2D DIMENSIONS IVSd1.0 (0.7-1.1cm)LVDd3.9 (3.9-5.9cm) PWd1.0 (0.7-1.1cm)LVDs2.4 (2.5-4.0cm) FS (%) 37.8 %LVEF (%)68.6 (>50%) M-Mode DIMENSIONS Left Atrium (MM)3.53 (2.5-4.0cm)Aortic Root3.37 (2.2-3.7cm) Aortic Cusp Exc.2.21 (1.5-2.0cm) Mitral Valve MV E Qxnaesxm84.2cm/sMV A Xhqxulbo12.0cm/sE/A ratio0.9 TDI E/Lateral E'0.0E/Medial E'0.0 Tricuspid Valve TR Peak [id number]/sTR Peak [id number] LEFT VENTRICLE The left ventricle is normal size. There is normal left ventricular wall thickness. Left ventricle systolic function is normal. The Ejection Fraction is 65-70%. There is normal LV segmental wall motion. Tissue Doppler imaging reveals abnormal left ventricular diastolic dysfunction. RIGHT VENTRICLE The right ventricle is normal size. There is normal right ventricular wall thickness. The right ventricular systolic function is normal. ATRIA The left atrium size is normal. The right atrium size is normal. The interatrial septum is intact with no evidence for an atrial septal defect. AORTIC VALVE The aortic valve is normal in structure. No aortic regurgitation is present. There is no aortic valvular stenosis. MITRAL VALVE The mitral valve is normal in structure. There is no evidence of mitral valve prolapse. There is no mitral valve stenosis. Mitral regurgitation is mild. TRICUSPID VALVE The tricuspid valve is normal in structure. There is trace tricuspid regurgitation. Right ventricular systolic pressure is estimated at less than 30 mmHg. There is no pulmonary hypertension. PULMONIC VALVE The pulmonic valve is not well visualized. There is no pulmonic valvular regurgitation. GREAT VESSELS The aortic root is normal in size. PERICARDIAL EFFUSION There is no significant pericardial effusion. <Conclusion> Left ventricle systolic function is normal. The Ejection Fraction is 65-70%. Diastolic dysfunction. No aortic regurgitation is present. Mitral regurgitation is mild. There is trace tricuspid regurgitation. There is no pulmonary hypertension. There is no pulmonic valvular regurgitation.
[2018-04-30 17:24] VITALS: RESP 20
[2018-04-30] MEDS ORDERED: Rosuvastatin Calcium 2.5 mg Tab PO SCH (22:00)
[2018-05-01] MEDS: Sodium Chloride 0.9% 1,000 ML IV SCH (00:05)
[2018-05-01 07:27] LABS: BASO % 0.8 % (0.0-2.0); EOS # 0.2 K/uL (0.0-0.7); EOS % 3.3 % (0.0-4.0); HEMOGLOBIN 13.6 g/dL (12.0-18.0); LYMPH # 3.5 K/uL (1.0-4.3); MEAN CELL VOLUME 89.1 fL (80.0-94.0); MEAN CORPUSCULAR HEMOGLOBIN 31.4 pg (27.0-31.0); MEAN CORPUSCULAR HGB CONC 35.2 g/dL (33.0-37.0); MONO # 0.5 K/uL (0.0-0.8); MONO % 8.1 % (0.0-10.0); NEUT # 1.8 K/uL (1.8-7.0); NEUT % 29.8 % (50.0-75.0); RBC 4.35 Mil/uL (4.40-5.90); RED CELL DISTRIBUTION WIDTH 13.5 % (11.5-14.5)
[2018-05-01 07:40] LABS: ALB/GLOB RATIO 1.3 (1.0-2.1); ALBUMIN 3.9 g/dL (3.5-5.0); ALT/SGPT 39 U/L (21-72); AST/SGOT 25 U/L (17-59); BLOOD UREA NITROGEN 14 mg/dL (9-20); CALCIUM 8.8 mg/dl (8.6-10.4); GFR AFRICAN-AMERICAN > 60; GFR NON-AFRICAN AMERICAN > 60
[2018-05-01] MEDS: (Novolin R) Insulin Human Regular 100 units/ml vial SC SCH (07:40)
[2018-05-01 08:29] VITALS: BP 132/86; PULSE 58; TEMP 98.1; O2SAT 96
--- NOTE | 2018-05-01 09:18 | CP.PCM.DIS ---
Provider - Provider Date of Admission: 04/29/18 17:47 Attending physician: Orlin Mattson MD Time Spent in preparation of Discharge (in minutes): 40 Hospital Course - Lab Results Lab Results: Most Recent Lab Values WBC 6.0 K/uL (4.8-10.8) 05/01/18 07:16 RBC 4.35 Mil/uL (4.40-5.90) L 05/01/18 07:16 Hgb 13.6 g/dL (12.0-18.0) 05/01/18 07:16 Hct 38.8 % (35.0-51.0) 05/01/18 07:16 MCV 89.1 fL (80.0-94.0) 05/01/18 07:16 MCH 31.4 pg (27.0-31.0) H 05/01/18 07:16 MCHC 35.2 g/dL (33.0-37.0) 05/01/18 07:16 RDW 13.5 % (11.5-14.5) 05/01/18 07:16 Plt Count 239 K/uL (130-400) 05/01/18 07:16 MPV 8.0 fL (7.2-11.7) 05/01/18 07:16 Neut % (Auto) 29.8 % (50.0-75.0) L 05/01/18 07:16 Lymph % (Auto) 58.0 % (20.0-40.0) H 05/01/18 07:16 [place] % (Auto) 8.1 % (0.0-10.0) 05/01/18 07:16 Eos % (Auto) 3.3 % (0.0-4.0) 05/01/18 07:16 Baso % (Auto) 0.8 % (0.0-2.0) 05/01/18 07:16 Neut # (Auto) 1.8 K/uL (1.8-7.0) 05/01/18 07:16 Lymph # (Auto) 3.5 K/uL (1.0-4.3) 05/01/18 07:16 [place] # (Auto) 0.5 K/uL (0.0-0.8) 05/01/18 07:16 Eos # (Auto) 0.2 K/uL (0.0-0.7) 05/01/18 07:16 Baso # (Auto) 0.0 K/uL (0.0-0.2) 05/01/18 07:16 PT 11.8 SECONDS (9.7-12.2) 04/29/18 17:08 INR 1.1 04/29/18 17:08 APTT 37 SECONDS (21-34) H 04/29/18 17:08 Sodium 141 mmol/L (132-148) 05/01/18 07:16 Potassium 4.9 mmol/L (3.6-5.2) 05/01/18 07:16 Chloride 105 mmol/L (98-107) 05/01/18 07:16 Carbon Dioxide 28 mmol/L (22-30) 05/01/18 07:16 Anion Gap 13 (10-20) 05/01/18 07:16 BUN 14 mg/dL (9-20) 05/01/18 07:16 Creatinine 1.1 mg/dL (0.8-1.5) 05/01/18 07:16 Est GFR ( Amer) > 60 05/01/18 07:16 Est GFR (Non-Af Amer) > 60 05/01/18 07:16 POC Glucose (mg/dL) 105 mg/dL (65-110) 05/01/18 06:05 Random Glucose 111 mg/dL (75-110) H 05/01/18 07:16 Hemoglobin A1c 6.5 % (4.2-6.5) 04/30/18 06:48 Calcium 8.8 mg/dl (8.6-10.4) 05/01/18 07:16 Phosphorus 3.0 mg/dL (2.5-4.5) 05/01/18 07:16 Magnesium 2.0 mg/dL (1.6-2.3) 05/01/18 07:16 Total Bilirubin 0.6 mg/dL (0.2-1.3) 05/01/18 07:16 AST 25 U/L (17-59) 05/01/18 07:16 ALT 39 U/L (21-72) 05/01/18 07:16 Alkaline Phosphatase 42 U/L (38-126) 05/01/18 07:16 Total Creatine Kinase 137 U/L (55-170) 04/29/18 17:08 CK-MB (Mass) 1.08 ng/mL (0.0-3.38) 04/29/18 17:08 Troponin I < 0.0120 ng/mL (0.00-0.120) 04/29/18 17:08 Total Protein 6.7 g/dL (6.3-8.3) 05/01/18 07:16 Albumin 3.9 g/dL (3.5-5.0) 05/01/18 07:16 Globulin 2.9 gm/dL (2.2-3.9) 05/01/18 07:16 Albumin/Globulin Ratio 1.3 (1.0-2.1) 05/01/18 07:16 Triglycerides 133 mg/dL (0-149) 04/30/18 06:48 Cholesterol 199 mg/dL (0-199) 04/30/18 06:48 LDL Cholesterol Direct 137 mg/dL (0-129) H 04/30/18 06:48 HDL Cholesterol 38 mg/dL (30-70) 04/30/18 06:48 Vitamin B12 371 pg/mL (239-931) 04/30/18 06:48 Folate 8.7 ng/mL 04/30/18 06:48 Free T4 0.87 ng/dL (0.78-2.19) 04/30/18 11:32 TSH 3rd Generation 4.87 mIU/L (0.46-4.68) H 04/30/18 06:48 - Hospital Course Hospital Course: HPI: 63 year old male with past medical history of HTN, DM type II, Vertigo; Lymphoma presents to the ER for headache, slurred speech and right arm numbness. Patient states the symptoms started around noon today when he was at his PMD's office. He states the right hand numbness started first and went up his arm and then he had difficulty speaking. He states these symptoms lasted for about 1-2 hours. His PMD wanted to call the ambulance but the patient came to the ER instead with his . Patient states this happened about a month ago with the same symptoms while he was in [place]. He states at that time he was seen by a physician in [place] who stated it was related to cervical disk problem. Patient states the last few days he has been having painful headaches which are located behind his eyes. Patient denies change in vision, blurry vision, weakness, chest pain, shortness of breath, nausea, vomiting, diarrhea or constipation. PMD: Dr. Wing Mahoney Oncologist: Dr. 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 Patient 's NIH score was 0. Numbness and slurred speech was resolved on admission. Neurology, Dr. Lara was consulted. Head CT was done which was negative for bleed. Patient was given 325mg of Aspirin followed by daily Aspirin 81mg. After findings seen on head/neck CTA noted below patient was started on Plavix 75mg daily. Patient was also started on a statin daily and patient's home medication was changed to 10mg Lisinopril daily. Patient was seen and examined at bedside in the AM. Patient states he is feeling a lot better. Patient denies headache, blurry vision, change in vision, numbness, tingling, chest pain, shortness of breath, palpitation, nausea, vomiting, diarrhea or constipation. Images: * Head CT: Minimal diffuse cerebral atrophy however no CT acute findings are appreciable throughout the brain as discussed above. Follow-up CT or MRI are available as clinically warranted. * Brain MRI with and w/o contrast: No acute intracranial hemorrhage or infarction. Mild chronic white matter is ischemic changes as described. No enhancing lesions seen. Mild moderate generalized volume loss. * Head/Neck CTA: Minor partially calcified atherosclerotic plaque left carotid bifurcation and right cavernous carotid segments. No evidence of occlusion of the extracranial or intracranial anterior/ posterior circulations as described. * ECHO: EF 65-70%; Left ventricle systolic function is normal. Diastolic dysfunction. No aortic regurgitation is present. Mitral regurgitation is mild. There is trace tricuspid regurgitation. There is no pulmonary hypertension. There is no pulmonic valvular regurgitation. Patient is stable for discharge home. Please take the following medications: Aspirin 81mg one tab daily Plavix 75mg one tab daily Crestor 5mg one tab with dinner Lisinopril 10mg one tab in the morning Please follow up with your primary doctor in 1 weeks. Please follow up with neurologist Dr. Saunders/Dr. Lara in 2 weeks. This is a summary of the patient's hospital course. Refer to full EMR for a complete record. Discharge Exam - Head Exam Head Exam: ATRAUMATIC, NORMAL INSPECTION - Eye Exam Eye Exam: EOMI, Normal appearance, PERRL Pupil Exam: NORMAL ACCOMODATION - ENT Exam ENT Exam: Mucous Membranes Moist - Respiratory Exam Respiratory Exam: Clear to PA & Lateral, NORMAL BREATHING PATTERN - Cardiovascular Exam Cardiovascular Exam: REGULAR RHYTHM, +S1, +S2 - GI/Abdominal Exam GI & Abdominal Exam: Normal Bowel Sounds, Soft. absent: Tenderness - Extremities Exam Extremities exam: normal inspection - Neurological Exam Neurological exam: Alert, CN II-XII Intact, Oriented x3 - Psychiatric Exam Psychiatric exam: Normal Affect, Normal Mood - Skin Skin Exam: Normal Color Discharge Plan - Discharge Medications Prescriptions: Aspirin [Aspirin Chewable] 81 mg PO DAILY #30 chew Clopidogrel [Plavix] 75 mg PO DAILY #30 tab Lisinopril [Zestril] 10 mg PO DAILY #30 tab Rosuvastatin Calcium [Crestor] 5 mg PO HS #30 tab - Follow Up Plan Condition: GOOD Disposition: HOME/ ROUTINE Instructions: Stroke (DC), Lowering the Risk of Having Another Stroke Additional Instructions: Please follow up with your Primary Doctor ,1 week after leaving the Hospital, please call for appointment. PLease follow up with Neurologist,Chip Shah/Marco Shah in 2 weeks after leaving the hospital,please call for appointment. Referrals: Per Saunders MD [Staff Provider] - Mariusz Lara MD [Staff Provider] -
--- NOTE | 2018-05-01 19:53 | CARD ---
APPROVED REPORT EKG Measurement Heart [id number] [place] [id number] <Conclusion> Sinus bradycardia Otherwise normal ECG
== END 2018-05-01 11:55 | disposition home or self-care (01) | DRG 34 ==
LOC: C.ER 16:04 → C.9E 17:47 → C.6T 18:41
PROVIDERS: ADMIT Internal Medicine; ATTEND Internal Medicine
DX: R47.81 Slurred speech (principal); R20.0 Anesthesia of skin; R51 Headache; Z94.81 Bone marrow transplant status; I10 Essential (primary) hypertension; E11.9 Type 2 diabetes mellitus without complications; I34.0 Nonrheumatic mitral (valve) insufficiency; Z85.72 Personal history of non-Hodgkin lymphomas; Z79.82 Long term (current) use of aspirin; Z79.899 Other long term (current) drug therapy; Z87.891 Personal history of nicotine dependence; Z79.84 Long term (current) use of oral hypoglycemic drugs